=== PATIENT | male | born 1965 | race Caucasian/White ===

== ENCOUNTER → 2017-04-16 | Outpatient (CLI) | payer OTHER | END | disposition home or self-care (01) | LOC: KCIC 15:18 | DX: M45.9 Ankylosing spondylitis of unspecified sites in spine (principal); M47.892 Other spondylosis, cervical region; M47.896 Other spondylosis, lumbar region; M47.894 Other spondylosis, thoracic region; N20.0 Calculus of kidney; G89.29 Other chronic pain; Z79.52 Long term (current) use of systemic steroids | CPT/HCPCS: 72040; 72072; 72100 ==

== ENCOUNTER → 2017-05-08 | Outpatient (CLI) | payer OTHER | END | disposition home or self-care (01) | LOC: KCIC US 15:27 | DX: E04.1 Nontoxic single thyroid nodule (principal); M43.13 Spondylolisthesis, cervicothoracic region | CPT/HCPCS: 76536 ==